=== PATIENT | female | born 1995 | race Caucasian/White ===

== ENCOUNTER 2025-02-18 14:11 | Emergency (ER) | payer SELFPAY ==
[2025-02-18 14:13] VITALS: BP 148/87; PULSE 88; RESP 18; TEMP 36.7; O2SAT 100; BMI 25.2
--- OUTSIDE RECORDS SUMMARY | 2025-02-18 14:31 | XMS_ITS | Patient Health Record ---
Author Organization [facility] Address [address] [place] [address] Care Team Providers Care Trailer Technician Name Role Phone Uzma Palmer Unavailable [phone] LobitoMarina Unavailable [phone] Allergies Allergen (clinical drug ingredient) Drug/Non Drug Allergy documented on EMR Reaction Allergy Type Onset Date Status sulfamethoxazole / trimethoprim BACTRIM (uncoded) Unspecified Allergy 2018 Active Reason For Referral No Information Medications Medication SIG (Take, Route, Frequency, Duration) Notes Start Date End Date Status ProAir HFA 108 (90 Base) MCG/ACT Aerosol Solution INHALE 2 PUFFS BY MOUTH EVERY 6 HOURS AND NEEDED FOR SHORTNESS OF BREATH OR WHEEZING Inhalation; Duration: 25 Days Active Mirena (52 MG) Activ e Social History Sex Assigned At : Social History Observation Description Sex Assigned At Female Social History Drugs/Alcohol: Social Info Question Answer Notes Drugs Have you used drugs other than those for medical reasons in the past 12 months? No Drug/Alcohol: Social Info Question Answer Notes AUDIT-C (Standard) Did you have a drink containing alcohol in the past year? Yes How often did you have six or more drinks on one occasion in the past year? Less than monthly (1 point) How many drinks did you have on a typical day when you were drinking in the past year? 1 or 2 drinks (0 point) How often did you have a drink containing alcohol in the past year? Monthly or less (1 point) Points 2 Interpretation Negative Problems Problem Type SNOMED Code ICD Code Onset Dates Problem Status W/U Status Risk Notes Problem Surveillance of intrauterine device contraception (636040115) Checking of intrauterine device (Z30.431) 021 Active confirmed Encounter for surveillance of intrauterine contraceptive device Problem Postcoital bleeding (92186808) PCB (post coital bleeding) (N93.0) Active confirmed Problem Urine test negative (984053502) Encounter for test with result negative (Z32.02) Active confirmed Urine test negative Problem Third trimester (57541895) Supervision of other normal , third trimester (Z34.83) 019 Active confirmed Supervision of other normal , third trimester Problem Third trimester (96654951) Supervision of other normal , third trimester (Z34.83) Active confirmed Supervision of other normal , third trimester Problem state, 2 weeks (02720269) 2 weeks follow-up (Z39.2) 019 Active confirmed visit Problem Second trimester (03057349) Supervision of other normal , second trimester (Z34.82) 019 Active confirmed Supervision of other normal , second trimester Problem First trimester (42930535) Supervision of other normal , first trimester (Z34.81) 018 Active confirmed Supervision of other normal , first trimester Problem First trimester (81386318) Supervision of other normal , first trimester (Z34.81) 018 Active confirmed Supervision of other normal , first trimester Problem Gestation period, 30 weeks (86256924) 30 weeks gestation of (Z3A.30) Active confirmed 30 weeks gestation of Problem Gynecological examination normal (41359379732028 4) Cervical smear, as part of routine gynecological examination (Z01.419) Active confirmed Annual without abnormal findings Problem screening (731199447) screening for streptococcus B (Z36.85) Active confirmed Encounter for screening for Streptococcus B of mother Vital Signs Heart Rate 77 /min 04/13/2024 Oximetry 99 % 04/13/2024 Blood pressure diastolic 79 mm Hg 04/13/2024 Height 66 in 04/13/2024 Blood pressure systolic 124 mm Hg 04/13/2024 Weight 174.3 lbs 04/13/2024 BMI 28.13 kg/m2 04/13/2024 Encounters Encounter Location Date Provider Diagnosis [facility] [address] [place] [address] 04/13/2024 Marina Robin 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 Advised due 2025 - Advised annual exams - Encourage SBEs - Advised condoms for STD prevention - Advised monthly string checks, IUD placed 2018, due for replacement 2026 Plan Of Treatment Next Appt Details Provider Name:Deana Carter , 03/01/2025 03:30:00 PM, [address], [place], [address], Provider Name:Gniohilda Palmer, 04/19/2025 10:45:00 AM, [address] [facility] [address], [place], [address], Insurance Providers Payer Name Payer Address Payer Phone Subscriber Number Group Number Insured Name Patient Relationship to Insured Coverage Start Date Coverage End Date Amara BYERSO [address] [place] [address] [id number] Daniel Le Spouse - patient is the spouse of the insured Medical (General) History Medical History History ICD Code Asthma Fibrocystic Breast Surgical History Surgery Date(Month/Year) tonsillectomy and adenoids removed Right breast lump removed - benign Hospitalization History Reason Date(Month/Year) 2018
--- NOTE | 2025-02-18 14:45 | ED_ITS ---
Discharge Plan Disposition Patient Disposition: Home, Self-Care Prescriptions Prescriptions: No Action hydroxyzine HCl 25 mg tablet 25 mg PO NEEDED PRN (Reason: Anxiety) Patient Comments: TAKE 1 TABLET BY MOUTH TWICE DAILY NEEDED escitalopram oxalate 10 mg tablet 10 mg PO DAILY Referrals Follow up/Referrals: Mady Haas APRN [Primary Care Provider, Medical] - See instructions Activity Restrictions/Add. Instructions Additional Instructions/Restrictions: Today you were evaluated in the emergency department. Stop your Lexapro as you are most likely having an allergic reaction to this medication. Continue to take your hydroxyzine as directed. Keep your follow-up appointment Friday morning. Please return to the ED for any worsening of condition. Clinical Impressions Clinical Impression: Acute anxiety, Medication reaction Instructions Patient Instructions: Anxiety and Panic Attacks (Alternative Therapy) Print Language Print Language: Uzbek Discharge ED Provider: Austin Alvarez Adult HPI <Aimee Ocasio APRN - Last Filed: 02/19/25 09:31> General Chief complaint: Anxiety Stated complaint: pt having side effects w medication Time Seen by Provider: 02/18/25 14:19 Mode of Arrival: Ambulatory Source of Information: Patient Description of Symptoms (Recalled from ER Triage Doc. by RN): PT REPORTS INSOMNIA AFTER STARTING LEXAPRO 5 DAYS AGO. SWITCHED MED TO AM DOSING AND REPORTS PANIC ATTACK COLD SWEATS, SHAKING AND HER NECK FELT HOT. PT DENIES SI/HI History of Present Illness HPI narrative: patient is a pleasant 29-year-old female PMHx anxiety who was recently started on Lexapro 5 days ago. Patient states that since she started the Lexapro she has had bilateral hand tremors, a red rash on her chest and posterior neck, and feels overall hot . Related Data Home Medications ?Medication ?Instructions ?Recorded ?Confirmed escitalopram oxalate 10 mg tablet 10 mg PO DAILY 02/1802/18/25 hydroxyzine HCl 25 mg tablet 25 mg PO NEEDED PRN An xiety 02/18/25 02/18/25 Allergies Allergy/AdvReac Type Severity Reaction Status Date / Time sulfamethoxazole (From AdvReac Other Verified 02/18/25 14:35 Bactrim) trimethoprim (From Bactrim) AdvReac Other Verified 02/18/25 14:35 PFSH <Aimee Ocasio APRN - Last Filed: 02/19/25 09:31> PFSH Disclaimer: The information contained in this section may have been updated after the patient was seen, as this information can be updated by other users. Social History (Updated 02/19/25 @ 08:36 by Austin Alvarez MD) Smoking Status: Never smoker alcohol intake: never current occupational status: employed Travel in the last 8 weeks?: None <Aimee Ocasio APRN - Last Filed: 02/19/25 09:31> ROS Obtained: Yes Systems reviewed as appropriate & no additional complaints except as documented Physical Exam <Aimee Ocasio APRN - Last Filed: 02/19/25 09:31> General General appearance: alert Head Head exam: atraumatic Neck Neck exam: Present full ROM Chest Chest inspection: Present other (Erythematous blanchable rash noted on lower neck and chest) Respiratory Respiratory exam: Absent respiratory distress Cardiovascular Cardiovascular exam: Present regular rate Neurological Exam Neurological exam: Present alert and oriented X3 Psychiatric Psychiatric exam: Present normal affect, normal mood and anxious Skin Skin exam: Present warm and dry Medical Decision Making <Aimee Ocasio APRN - Last Filed: 02/19/25 09:31> Medical Records Screening: Per USPSTF and CDC recommendations, given the prevalence of disease in our region, it is our hospital?s policy to screen for HIV and viral Hepatitis for all patients aged 18 and over and those with ongoing risk factors. João Inquiry Pt receiving controlled substance: No Vital Signs: 02/18/25 14:13 02/18/25 14:58 Temperature 98.0 F 98.0 F Temperature Source Oral Oral Pulse Rate 89 Pulse Rate [Radial] 88 Respiratory Rate 18 18 Blood Pressure 148/87 H Blood Pressure [Left Arm] 148/87 H Blood Pressure Mean [Left Arm] 107 Blood Pressure Source Automatic Cuff Blood Pressure Source [Left Arm] Automatic Cuff Blood Pressure Position Sitting Blood Pressure Position [Left Arm] Sitting 02 Sat by Pulse Oximetry 100 Oxygen Delivery Method Room Air Room Air Orders (Tests/Meds): ORDERS Category Date Time Status HIV Combo Stat Lab 02/18/25 14:39 Ordered Hepatitis C Ab Qual. W/ RFX Stat Lab 02/18/25 14:39 Ordered Medical Decision Narrative: In summary, patient is a pleasant 29-year-old female PMHx anxiety who was recently started on Lexapro 5 days ago. Patient states that since she started the Lexapro she has had bilateral hand tremors, a red rash on her chest and posterior neck, and feels overall hot . Patient states she has had insomnia since starting the medication. She states that she is sane , she is alert and oriented, denies being suicidal or homicidal. No anaphylactic symptoms. She is also taking as needed hydroxyzine which she states does help with her symptoms. Denies headache, visual disturbances, chest pain, shortness of breath, abdominal pain. I discussed with patient I feel she is most likely having allergic reaction to the Lexapro. I advised her to stop immediately, she can continue to take her hydroxyzine, she has been on this for quite a while without adverse effects. Patient is also established with PCP, has a follow-up appointment Friday, states she has a referral to behavioral health. After reassurance, patient was safe to be discharged home. She verbalized understanding of discharge instructions. We discussed very strict return precautions. <Austin Alvarez MD - Last Filed: 02/19/25 08:36> Vital Signs: 02/18/25 14:13 02/18/25 14:58 Temperature 98.0 F 98.0 F Temperature Source Oral Oral Pulse Rate 89 Pulse Rate [Radial] 88 Respiratory Rate 18 18 Blood Pressure 148/87 H Blood Pressure [Left Arm] 148/87 H Blood Pressure Mean [Left Arm] 107 Blood Pressure Source Automatic Cuff Blood Pressure Source [Left Arm] Automatic Cuff Blood Pressure Position Sitting Blood Pressure Position [Left Arm] Sitting 02 Sat by Pulse Oximetry 100 Oxygen Delivery Method Room Air Room Air Orders (Tests/Meds): ORDERS Category Date Time Status HIV Combo Stat Lab 02/18/25 14:39 Ordered Hepatitis C Ab Qual. W/ RFX Stat Lab 02/18/25 14:39 Ordered Medical Decision Narrative: In summary, patient is a pleasant 29-year-old female PMHx anxiety who was recently started on Lexapro 5 days ago. Patient states that since she started the Lexapro she has had bilateral hand tremors, a red rash on her chest and posterior neck, and feels overall hot . Patient states she has had insomnia since starting the medication. She states that she is sane , she is alert and oriented, denies being suicidal or homicidal. No anaphylactic symptoms. She is also taking as needed hydroxyzine which she states does help with her symptoms. Denies headache, visual disturbances, chest pain, shortness of breath, abdominal pain. I discussed with patient I feel she is most likely having allergic reaction to the Lexapro. I advised her to stop immediately, she can continue to take her hydroxyzine, she has been on this for quite a while without adverse effects. Patient is also established with PCP, has a follow-up appointment Friday, states she has a referral to behavioral health. After reassurance, patient was safe to be discharged home. She verbalized understanding of discharge instructions. We discussed very strict return precautions. I was consulted by the MASSIEL, and we discussed the complexity of the problems being addressed. I approve the treatment and management plan for this patient's care in the emergency department, thus performing a substantive portion of the medical decision making. Austin Alvarez MD Critical Care <Aimee Ocasio, MODEL AND PATTERN SUPERVISOR - Last Filed: 02/19/25 09:31> Critical Care Time Critical Care Time: No
[2025-02-18 14:58] VITALS: BP 148/87; PULSE 89; RESP 18; TEMP 36.7; O2SAT 98
--- NOTE | 2025-02-18 14:59 | PC.NURSE ---
BEHAVIORAL HEALTH APPT MADE FOR FRIDAY AT 13:00
== END 2025-02-18 14:59 | disposition home or self-care (01) ==
PROVIDERS: Emergency Provider Student in an Organized Health Care Education/Training Program; PCP Nurse Practitioner Family
DX: F41.1 Generalized anxiety disorder (principal); T43.225A Adverse effect of selective serotonin reuptake inhibitors, initial encounter; F33.9 Major depressive disorder, recurrent, unspecified
CPT/HCPCS: 99283

== ENCOUNTER 2025-02-20 07:42 | Emergency (ER) | payer BC, SELFPAY ==
[2025-02-20] VITALS (9 sets, daily range): BP systolic 115–136; BP diastolic 79–89; PULSE 80–95; RESP 12–21; TEMP 36.7–36.9; O2SAT 98–100; BMI 24.8
--- NOTE | 2025-02-20 07:53 | ECG_ITS ---
APPROVED REPORT Exam: Resting ECG HR:89 bpm ECG Measurements Heart Rate 89 AXES PA 135 P 70 QRSd 91 QRS 88 QT 354 T 61 QTc 401 Conclusion SINUS RHYTHM INCOMPLETE RIGHT BUNDLE BRANCH BLOCK [90+ ms QRS DURATION, TERMINAL R IN V1/V2, 40+ ms S IN I/aVL/V4/V5/V6] MODERATE ST DEPRESSION [0.05+ mV ST DEPRESSION] ABNORMAL ECG UNCONFIRMED REPORT Electronically signed by : MAKEDA ZUNIGA, 02/22/2025 04:22:06
--- OUTSIDE RECORDS SUMMARY | 2025-02-20 07:54 | XMS_ITS | Patient Health Record ---
Author Organization [facility] Address [address] [place] [address] Care Team Providers Care Kieselguhr Regenerator Operator Name Role Phone Uzma Palmer Unavailable [phone] LobitoMarina Unavailable [phone] Allergies Allergen (clinical drug ingredient) Drug/Non Drug [...] Notes Problem Surveillance of intrauterine device contraception (417539555) Checking of intrauterine device (Z30.431) 021 Active confirmed Encounter for surveillance of intrauterine contraceptive device Problem Postcoital bleeding (19519636) PCB (post coital bleeding) (N93.0) Active confirmed Problem Urine test negative (724433041) Encounter for test with result negative (Z32.02) Active confirmed Urine test negative Problem Third trimester (42757072) Supervision of other normal , third trimester (Z34.83) 019 Active confirmed Supervision of other normal , third trimester Problem Third trimester (32191024) Supervision of other normal , third trimester (Z34.83) Active confirmed Supervision of other normal , third trimester Problem state, 2 weeks (35540536) 2 weeks follow-up (Z39.2) 019 Active confirmed visit Problem Second trimester (97851127) Supervision of other normal , second trimester (Z34.82) 019 Active confirmed Supervision of other normal , second trimester Problem First trimester (17034596) Supervision of other normal , first trimester (Z34.81) 018 Active confirmed Supervision of other normal , first trimester Problem First trimester (08668650) Supervision of other normal , first trimester (Z34.81) 018 Active confirmed Supervision of other normal , first trimester Problem Gestation period, 30 weeks (89351735) 30 weeks gestation of (Z3A.30) Active confirmed 30 weeks gestation of Problem Gynecological examination normal (10221321683942 4) Cervical smear, as part of routine gynecological examination (Z01.419) Active confirmed Annual without abnormal findings Problem screening (608966719) screening for streptococcus B (Z36.85) Active confirmed Encounter for screening for Streptococcus B of mother Vital Signs Heart Rate 77 /min 04/13/2024 Oximetry 99 % 04/13/2024 Blood pressure diastolic 79 mm Hg 04/13/2024 Height 66 in 04/13/2024 Blood pressure systolic 124 mm Hg 04/13/2024 Weight 174.3 lbs 04/13/2024 BMI 28.13 kg/m2 04/13/2024 Encounters Encounter Location Date Provider Diagnosis [facility] [address] [place] [address] 04/13/2024 Marina Robin 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 Advised due 2025 - Advised annual exams - Encourage SBEs - Advised condoms for STD prevention - Advised monthly string checks, IUD placed 2018, due for replacement 2026 Plan Of Treatment Next Appt Details Provider Name:Deana Carter , 03/01/2025 03:30:00 PM, [address], [place], [address], Provider Name:Ginohilda Palmer, 04/19/2025 10:45:00 AM, [address] [facility] [address], [place], [address], Insurance Providers Payer Name Payer Address Payer Phone Subscriber Number Group Number Insured Name Patient Relationship to Insured Coverage Start Date Coverage End Date Amara BYERSO [address] [place] [address] [id number] Daniel Le Spouse - patient is the spouse of the insured Medical (General) History Medical History History ICD Code Asthma Fibrocystic Breast Surgical History Surgery Date(Month/Year) tonsillectomy and adenoids removed Right breast lump removed - benign Hospitalization History Reason Date(Month/Year) 2018
[2025-02-20 08:44] LABS: Hematocrit 45.8 % (37.0-47.0); Hemoglobin 16.0 g/dL (12.2-16.2); Immature Granulocytes % 0.2 %; Mean Corpuscular HGB Conc 34.9 g/dL (31.8-35.4); Mean Corpuscular Hemoglobin 30.9 pg (27.0-31.2); Mean Corpuscular Volume 88.6 fl (81-99); Nucleated Red Blood Cells % 0 %; Platelet Count 231 K/mm3 (142-424); Red Blood Count 5.17 M/mm3 (4.20-5.40); Red Cell Distribution Width-SD 39.4 fL; White Blood Count 6.5 K/mm3 (4.8-10.8)
--- NOTE | 2025-02-20 08:46 | ED_ITS ---
Discharge Plan Disposition Patient Disposition: Home, Self-Care Condition: Good Prescriptions Prescriptions: No Action Mirena 21 mcg/24hr (up to 8 yrs) 52 mg intrauterine device intrauterine propranolol 10 mg tablet 10 mg PO ONCE PRN (Reason: situational anxiety or panic) 30 Days Qty: 30 2RF hydroxyzine HCl 25 mg tablet 25 mg PO ONCE PRN (Reason: Anxiety or sleep WILL CAUSE DROWSINESS) 30 Days Qty: 30 2RF Referrals Follow up/Referrals: Mady Haas APRN [Primary Care Provider, Medical] - See instructions Activity Restrictions/Add. Instructions Additional Instructions/Restrictions: Take the hydroxyzine tonight 1 hour before you go to bed and in the morning tomorrow. The hydroxyzine can make you sleepy therefore see how it affects you tomorrow before taking during the day every day. You can also take Benadryl at night to help with sleep but do not take this in addition to hydroxyzine. Follow-up with your scheduled appointment with behavioral health on Friday. Avoid any anxiety triggers like caffeine specific social triggers. Return to the emergency department for any acute or worsening symptoms. Clinical Impressions Clinical Impression: Heart palpitations Print Language Print Language: Upper Sorbian Discharge ED Provider: Traci Valdes Adult HPI General Chief complaint: Weakness Stated complaint: Vomitting, dizzy, weak Time Seen by Provider: 02/20/25 07:53 Mode of Arrival: Ambulatory Source of Information: Patient Description of Symptoms (Recalled from ER Triage Doc. by RN): Pt presents to the ED with generalized weakness. pt reports that she was started on Lexapro on Friday and Friday was seen in the ED for an allergic reaction to Lexapro. Pt states on Friday she reports that she had a ring rash around her neck, dizziness, and weak. Pt was started on Hydroxyzine on Friday. Pt started feeling anxious yesterday and took the Hydroxyzine with relief of her anxiety. Pt last dose of Hydroxyzine was at 23:30 last night. pt states that she was awake all night having vivid dreams and heart racing. pt reports that she feels very clammy. Denies shortness of breath and chest pain. Pt reports she doesn't feel like herself. History of Present Illness HPI narrative: Patient is an otherwise healthy 29-year-old female who presented to the emergency department with palpitations weakness, and insomnia. Patient states that she was started on Lexapro on Friday by her primary care provider and patient has had worsening anxiety since that time. Patient states that she has had significant troubles falling asleep at night however was able to fall asleep Friday night for 12 hours but was unable to sleep last night. Patient was seen Friday in the emergency department with a new rash and was diagnosed with an allergic reaction and advised to discontinue taking the Lexapro. Patient states that the rash has improved and she took 1 dose of hydroxyzine last night which helped with the anxiety but did not help with her sleep. Patient states that she is not having chest pain or shortness of breath but having palpitations that feel that her heart is racing and not skipping beats. Patient denies any history of thyroid disease. Patient reports nausea but no vomiting. Patient denies any abdominal pain. Patient denies any urinary symptoms. Patient states that she has lost 10 pounds in the last week given lack of appetite. Patient states that she has a follow-up appointment with behavioral health this week. Related Data Home Medications ?Medication ?Instructions ?Recorded ?Confirmed levonorgestrel (Mirena) intrauterine 02/22/25 Previous Rx's ?Medication ?Instructions ?Recorded hydroxyzine HCl 25 mg tablet 25 mg PO ONCE PRN Anxiety or sleep 02/22/25 WILL CAUSE DROWSINESS 30 days #30 tabs propranolol 10 mg tablet 10 mg PO ONCE PRN situationa l 02/22/25 anxiety or panic 30 days #30 tabs Allergies Allergy/AdvReac Type Severity Reaction Status Date / Time escitalopram (From Lexapro) Allergy Rash Verified 02/22/25 13:05 sulfamethoxazole (From AdvReac Other Verified 02/22/25 13:05 Bactrim) trimethoprim (From Bactrim) AdvReac Other Verified 02/22/25 13:05 [facility] PFS Disclaimer: The information contained in this section may have been updated after the patient was seen, as this information can be updated by other users. Social History Smoking Status: Never smoker alcohol intake: never current occupational status: employed Travel in the last 8 weeks?: None ROS Obtained: Yes All systems reviewed & no additional complaints except as documented and Yes Systems reviewed as appropriate & no additional complaints except as documented Physical Exam General General appearance: alert and in no apparent distress Head Head exam: atraumatic, normocephalic and normal inspection Eye Eye exam: Present normal appearance, PERRL and EOMI; Absent scleral icterus ENT ENT exam: Present normal exam and normal external ear exam Neck Neck exam: Present normal inspection and full ROM Chest Chest inspection: Present normal inspection and symmetric chest wall rise Respiratory Respiratory exam: Present normal lung sounds bilaterally; Absent respiratory distress or wheezes Cardiovascular Cardiovascular exam: Present regular rate, normal rhythm and normal heart sounds Abdominal Exam Abdominal exam: Present soft and distention; Absent tenderness, guarding or rebound Extremities Exam Extremities exam: Present normal inspection and full ROM Back Exam Back exam: Present normal inspection and full ROM Neurological Exam Neurological exam: Present alert and oriented X3 Psychiatric Psychiatric exam: Present normal affect and normal mood Skin Skin exam: Present warm and dry Medical Decision Making Medical Records Screening: Per USPSTF and CDC recommendations, given the prevalence of disease in our region, it is our hospital?s policy to screen for HIV and viral Hepatitis for all patients aged 18 and over and those with ongoing risk factors. João Inquiry Pt receiving controlled substance: No Vital Signs: 02/20/25 07:56 02/20/25 08:00 02/20/25 08:10 Temperature 98.4 F 98.4 F Temperature Source Oral Oral Pulse Rate 95 H 83 Pulse Rate [Right] 83 Respiratory Rate 12 15 12 Blood Pressure 133/89 133/89 Blood Pressure [Right Arm] 133/89 Blood Pressure Mean [Right Arm] 103 Blood Pressure Source Automatic Cuff Blood Pressure Source [Right Arm] Automatic Cuff Blood Pressure Position Supine Blood Pressure Position [Right Arm] Supine 02 Sat by Pulse Oximetry 98 99 98 Oxygen Delivery Method Room Air Room Air 02/20/25 08:12 02/20/25 08:30 02/20/25 09:00 Temperature Temperature Source Pulse Rate 89 92 H Pulse Rate [Right] Respiratory Rate 12 21 Blood Pressure 136/89 119/88 Blood Pressure [Right Arm] Blood Pressure Mean [Right Arm] Blood Pressure Source Blood Pressure Source [Right Arm] Blood Pressure Position Blood Pressure Position [Right Arm] 02 Sat by Pulse Oximetry 98 100 99 Oxygen Delivery Method Room Air 02/20/25 09:30 02/20/25 10:00 02/20/25 10:32 Temperature 98.0 F Temperature Source Pulse Rate 85 86 80 Pulse Rate [Right] Respiratory Rate 13 13 15 Blood Pressure 125/86 115/79 115/79 Blood Pressure [Right Arm] Blood Pressure Mean [Right Arm] Blood Pressure Source Blood Pressure Source [Right Arm] Blood Pressure Position Blood Pressure Position [Right Arm] 02 Sat by Pulse Oximetry 99 99 Oxygen Delivery Method Lab Data Lab results reviewed: Yes I reviewed the patient's lab results. Lab Results 02/20/25 08:13: WBC 6.5, RBC 5.17, Hgb 16.0, Hct 45.8, MCV 88.6, MCH 30.9, MCHC 34.9, RDW 12.5, Plt Count 231, MPV 11.5 H, Neut % (Auto) 73.6, Lymph % (Auto) 18.6, Mckenzie % (Auto) 6.0, Eos % (Auto) 0.8, Baso % (Auto) 0.8, Neut # (Auto) 4.8, Lymph # (Auto) 1.2, Mckenzie # (Auto) 0.4, Eos # (Auto) 0.1, Baso # (Auto) 0.1, Sodium 136, Potassium 4.2, Chloride 103, Carbon Dioxide 25, Anion Gap 12.2, BUN 14, Creatinine 0.70, Estimated Creat Clear 131, Estimated GFR 99, Est GFR ( Amer) 120, Glucose 92, Calcium 9.9, Total Bilirubin 1.0, AST 25, ALT 16, Alkaline Phosphatase 55, Troponin I < 0.01, Total Protein 7.7, Albumin 4.2, Globulin 3.5 H, Albumin/Globulin Ratio 1.2, TSH 1.44, Free T4 1.82, Serum HCG, Qual Negative 02/20/25 08:13 02/20/25 08:13 Orders (Tests/Meds): ED MEDICATIONS Discontinued Medications Generic Name Dose Route Start Last Admin Trade Name Freq PRN Reason Stop Dose Admin Lorazepam 0.5 mg 02/20/25 08:18 02/20/25 08:22 Lorazepam 0.5mg Tablet PO 02/20/25 08:19 0.5 mg ONCE ONE Administration ORDERS Category Date Time Status CBC w/Auto Diff [Complete Blood Count Auto Diff] Stat Lab 02/20/25 08:13 Completed CMP [Comprehensive Metabolic Panel] Stat Lab 02/20/25 08:13 Completed Free T4 (Free Thyroxine) Stat Lab 02/20/25 08:13 Completed HCG Qualitative, Serum Stat Lab 02/20/25 08:13 Completed Thyroid Stimulating Hormone Stat Lab 02/20/25 08:13 Completed Trop I [Troponin I] Stat Lab 02/20/25 08:13 Completed ECG Data Tracing #1: I reviewed this ECG and interpreted as documented below: EKG, normal sinus rhythm [address] or T wave changes concerning for ischemia Medical Decision Narrative: Patient is a otherwise healthy 29-year-old female who presented to the emergency department with weakness, palpitations and insomnia. On arrival, patient was hemodynamically stable with unremarkable vital signs. Differential includes but not limited to: Anxiety, panic attack, electrolyte abnormalities, dehydration, cardiac pathology, arrhythmia, amongst others. CBC was reviewed and interpreted by myself, CBC showed no leukocytosis, hemoglobin was stable. CMP was unremarkable. test was negative. Thyroid studies were unremarkable. Initial troponin less than 0.01, second troponin not obtained given symptoms longer than 6 hours. EKG was reviewed and interpreted by myself and showed normal sinus rhythm without acute ST or T wave changes concerning for ischemia Patient was given a small dose of oral Ativan here in the emergency department, patient stated that her symptoms largely resolved. Patient was recommended to continue taking her hydroxyzine which she was previously prescribed. Patient has a follow-up appointment with behavioral health on . At this time given patient's otherwise unremarkable workup I feel that patient is appropriate for discharge home. Patient was given return precautions and patient was otherwise discharged home in stable condition. Critical Care Critical Care Time Critical Care Time: No
[2025-02-20 08:49] LABS: Chloride 103 mmol/L (98-107)
[2025-02-20 08:50] LABS: Albumin Level 4.2 g/dl (3.5-5.0); HCG Qualitative, Serum Negative (Negative); Potassium 4.2 mmoL/L (3.5-5.1); Sodium 136 mmol/L (136-145)
[2025-02-20 08:53] LABS: Alanine Aminotransferase 16 U/L (12-78); Albumin/Globulin Ratio 1.2 (1.1-1.8); Alkaline Phosphatase 55 U/L (38-126); Anion Gap 12.2 mEq/L (5-15); Aspartate Amino Transferase 25 U/L (14-36); Bilirubin,Total 1.0 mg/dl (0.2-1.3); Blood Urea Nitrogen 14 mg/dl (7-17); Calcium 9.9 mg/dl (8.4-10.2); Carbon Dioxide 25 mmol/L (22.0-30.0); Creatinine Clearance Estimated 131 mL/min (50-200); Creatinine,Serum 0.70 mg/dl (0.52-1.04); Estimated Glomerular Filt Rate 99 ml/min (>60); GFR (African American) 120 ML/MIN (>60); Globulin 3.5 g/dL (1.3-3.2); Glucose 92 mg/dl (74-100); Total Protein,Serum 7.7 g/dl (6.3-8.2)
--- NOTE | 2025-02-20 09:10 | PC.NURSE ---
Levi collected and sent to lab.
[2025-02-20 09:12] LABS: Troponin I < 0.01 ng/ml (0.00-0.034)
[2025-02-20 09:33] LABS: Free T4 (Free Thyroxine) 1.82 ng/dl (0.78-2.19)
[2025-02-20 09:43] LABS: Thyroid Stimulating Hormone 1.44 uIU/mL (0.465-4.68)
== END 2025-02-20 10:33 | disposition home or self-care (01) ==
PROVIDERS: Emergency Provider Student in an Organized Health Care Education/Training Program; PCP Nurse Practitioner Family
DX: R00.2 Palpitations (principal); F41.0 Panic disorder [episodic paroxysmal anxiety]
CPT/HCPCS: 80053; 84439; 84443; 84484; 84703; 85025; 93005; 99284